=== PATIENT | male | born 1965 | race Caucasian/White ===

== ENCOUNTER 2018-07-17 07:48 | Observation (INO) | payer BC ==
[2018-07-17 08:11] VITALS: BMI 30.2
--- NOTE | 2018-07-17 08:49 | PDOC ---
History of Present Illness <JordanScott - Last Filed: 07/17/18 09:30> - History of Present Illness Initial Comments: 07/17/18 09:17 The patient is a 52 year old with a past medical history of asthma here today for evaluation of chest pain. The patient reports that his chest pain began 5 days ago and describes the pain as sharp, intermittent, and localized to the substernal area. He reports waking up at 2 am last night with chest and neck pain worse than he felt before. He notes the chest pain lasted only for a short time but the neck pain lasted for 30 minutes. The patient reports going to work today and when climbing a flight of stairs he felt lightheaded, dizzy, dry mouth , and his heart racing with chest pressure. He notes his symptoms improved after he was given 4 aspirin and 1 nitroglycerin by EMS. Currently pain is 3/ 10. Pt smoked socially as a teen, no recent smoking. No drug use. No family hx cardiac disease. Pt was diagnosed with lyme disease 4 months ago after peripheral numbness, all symptoms improved after 1 month of antibiotics. Patient denies headache. Denies fever, chills. Denies shortness of breath. Denies nausea, vomiting, diarrhea, abdominal pain. Denies lower extremity edema. Allergies: NKA Social history: Patient reports drinking alcohol socially PCP: none <Julio Cunha - Last Filed: 07/17/18 10:54> - General Chief Complaint: Chest Pain Stated Complaint: Chest Pain Time Seen by Provider: 07/17/18 08:24 Past History <JordanScott - Last Filed: 07/17/18 09:30> - Past Medical History Asthma: Yes (excercise induced, seasonal) COPD: No - Immunization History Immunization Up to Date: Yes - Suicide/Smoking/Psychosocial Hx Smoking History: Never smoked Have you smoked in the past 12 months: No Hx Alcohol Use: No Drug/Substance Use Hx: No <Julio Cunha - Last Filed: 07/17/18 10:54> - Past Medical History Allergies/Adverse Reactions: Allergies Allergy/AdvReac Type Severity Reaction Status Date / Time No Known Allergies Allergy Verified 07/17/18 08:28 Review of Systems - Review of Systems Comments:: 07/17/18 09:19 GENERAL/CONSTITUTIONAL: +lightheadedness. +dizziness. No fever or chills. No weakness. HEAD, EYES, EARS, NOSE AND THROAT: No change in vision. No ear pain or discharge. No sore throat. GASTROINTESTINAL: No nausea, vomiting, diarrhea or constipation. GENITOURINARY: No dysuria, frequency, or change in urination. CARDIOVASCULAR: +chest pain. +heart racing. No shortness of breath. RESPIRATORY: No cough, wheezing, or hemoptysis. MUSCULOSKELETAL: +neck pain. No joint or muscle swelling or pain. No back pain. SKIN: No rash NEUROLOGIC: No headache, vertigo, loss of consciousness, or change in strength/ sensation. ENDOCRINE: No increased thirst. No abnormal weight change. HEMATOLOGIC/LYMPHATIC: No anemia, easy bleeding, or history of blood clots. ALLERGIC/IMMUNOLOGIC: No hives or skin allergy. <Julio Cunha - Last Filed: 07/17/18 10:54> *Physical Exam - Vital Signs Last Vital Signs Temp Pulse Resp BP Pulse Ox 99.1 F 88 16 125/82 99 07/17/18 07:57 07/17/18 07:57 07/17/18 07:57 07/17/18 07:57 07/17/18 08:46 <Scott Ortega - Last Filed: 07/17/18 09:30> - Vital Signs Last Vital Signs Temp Pulse Resp BP Pulse Ox 99.1 F 88 16 125/82 99 07/17/18 07:57 07/17/18 07:57 07/17/18 07:57 07/17/18 07:57 07/17/18 07:57 - Physical Exam Comments: 07/17/18 09:19 GENERAL: Awake, alert, and fully oriented, in no acute distress HEAD: No signs of trauma EYES: PERRLA, EOMI, sclera anicteric, conjunctiva clear ENT: Auricles normal inspection, hearing grossly normal, nares patent, oropharynx clear without exudates. Moist mucosa NECK: Normal ROM, supple, no lymphadenopathy, JVD, or masses LUNGS: Breath sounds equal, clear to auscultation bilaterally. No wheezes, and no crackles HEART: Regular rate and rhythm, normal S1 and S2, no murmurs, rubs or gallops ABDOMEN: Soft, nontender, normoactive bowel sounds. No guarding, no rebound. No masses EXTREMITIES: Normal range of motion, no edema. No clubbing or cyanosis. No cords, erythema, or tenderness NEUROLOGICAL: Normal speech, cranial nerves intact, negative pronator drift, 5/ 5 strength in all 4 extremities, normal sensation to light touch in all 4 extremities, normal cerebellar exam, normal gait, normal reflexes and tone SKIN: Warm, Dry, normal turgor, no rashes or lesions noted. <Julio Cunha - Last Filed: 07/17/18 10:54> Moderate Sedation - Procedure Monitoring Vital Signs: Procedure Monitoring Vital Signs Temperature 99.1 F 07/17/18 07:57 Pulse Rate 88 07/17/18 07:57 Respiratory Rate 16 07/17/18 07:57 Blood Pressure 125/82 07/17/18 07:57 O2 Sat by Pulse Oximetry (%) 99 07/17/18 08:46 <Scott Ortega - Last Filed: 07/17/18 09:30> - Procedure Monitoring Vital Signs: Procedure Monitoring Vital Signs Temperature 99.1 F 07/17/18 07:57 Pulse Rate 88 07/17/18 07:57 Respiratory Rate 16 07/17/18 07:57 Blood Pressure 125/82 07/17/18 07:57 O2 Sat by Pulse Oximetry (%) 99 07/17/18 07:57 <Julio Cunha - Last Filed: 07/17/18 10:54> Heart Score/ECG Review - History History: Highly suspicious - Electrocardiogram EKG: Non specific repolarization disturbance - Age Age: 45-65 - Risk Factors Based on the list above the patient has:: No risk factors known - Troponin Troponin: </= normal limit - Score Heart Score - Total: 4 - [place] Comment: 07/17/18 09:34 Twelve-lead EKG was performed and reviewed by me. Normal sinus rhythm, rate 86. Normal axis and intervals. No ST elevations or T-wave inversions. <Julio Cunha - Last Filed: 07/17/18 10:54> ED Treatment Course - LABORATORY CBC & Chemistry Diagram: 07/17/18 08:45 07/17/18 08:45 - ADDITIONAL ORDERS Additional order review: 07/17/18 08:45 RBC 5.18 MCV 89.5 MCHC 33.0 RDW 13.1 MPV 9.7 Neutrophils % 54.0 Lymphocytes % 29.1 Monocytes % 11.3 H Eosinophils % 4.7 H Basophils % 0.9 <Scott Ortega - Last Filed: 07/17/18 09:30> - LABORATORY CBC & Chemistry Diagram: 07/17/18 08:45 07/17/18 08:45 - RADIOLOGY Radiology Studies Ordered: Category Date Time Status CHEST X-RAY PORTABLE* [RAD] Stat Radiology 07/17/18 08:18 Ordered <Julio Cunha - Last Filed: 07/17/18 10:54> Medical Decision Making - Medical Decision Making 07/17/18 09:35 52yo M with no sig PMH presents to the ED with chest pressure at rest and with exertion. Vitals wnl. Exam wnl. EKG non ischemic. DDx includes unstable angina vs NSTEMI vs PNA vs MSK pain vs GERD. Plan -labs -CXR -admit 07/17/18 10:[address] Reed, pt accepted for admission to [facility] under Dr. Valdez Case discussed in detail with admitting physician including history, physical exam and ancillary studies. Admitting physician has assumed care for the patient, will follow all pending diagnostics and will complete the evaluation and treatment. <Julio Cunha - Last Filed: 07/17/18 10:54> *DC/Admit/Observation/Transfer - Attestations Scribe Attestion: 07/17/18 09:30 Documentation prepared by DUSTY Perea, acting as medical logistics specialist for Julio Cunha MD. <Scott Ortega - Last Filed: 07/17/18 09:30> - Discharge Dispostion Decision to Admit order: Yes - Attestations Physician Attestion: 07/17/18 10:54 I, Dr. Julio Cunha MD, attest that this document has been prepared under my direction and personally reviewed by me in its entirety. I further attest, that it accurately reflects all work, treatment, procedures and medical decision -making performed by me. <Julio Cunha - Last Filed: 07/17/18 10:54> Diagnosis at time of Disposition: Chest discomfort, Lightheaded, Chest pain - Discharge Dispostion Condition at time of disposition: Stable
[2018-07-17 09:10] LABS: BASO % 0.9 % (0-2.0); EOS % 4.7 % (0-4.5); HEMATOCRIT 46.4 % (35.4-49); HEMOGLOBIN 15.3 GM/dL (11.7-16.9); LYMPH % 29.1 % (8-40); MCH 29.6 pg (25.7-33.7); MEAN CELL VOLUME 89.5 fl (80-96); MEAN PLT VOLUME 9.7 fl (7.5-11.1); MONO % 11.3 % (3.8-10.2); PLATELET COUNT 207 K/MM3 (134-434); RBC 5.18 M/mm3 (4.00-5.60); RDW 13.1 % (11.9-15.9); WHITE BLOOD COUNT 6.4 K/mm3 (4.0-10.0)
[2018-07-17 09:34] LABS: ALBUMIN 4.6 g/dl (3.4-5.0); ALK PHOS 70 U/L (45-117); ANION GAP 7 MMOL/L (8-16); BILIRUBIN,TOTAL 0.6 mg/dL (0.2-1); BLOOD UREA NITROGEN 16 mg/dL (7-18); CALCIUM 10.1 mg/dL (8.5-10.1); CHLORIDE 105 mmol/L (98-107); CO2 28 mmol/L (21-32); CREATININE 0.9 mg/dL (0.55-1.3); GLUCOSE,RANDOM 105 mg/dL (74-106); POTASSIUM 4.3 mmol/L (3.5-5.1); SGOT/AST 56 U/L (15-37); SGPT/ALT 113 U/L (13-61); SODIUM 140 mmol/L (136-145)
--- NOTE | 2018-07-17 10:38 | HP ---
CHIEF COMPLAINT: Chest pressure and SOB x 1 day PCP: None HISTORY OF PRESENT ILLNESS: Pt is a 52 yo M with PMHx of asthma, and lyme disease (radiculoneuritis) now presenting with recurrent sharp chest pains x 5 days and chest pressure and SOB x 1 day. 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 No radiation, but he felt a pain at the back of his head on the R. No diaphoresis/nausea/vomiting/no syncope but felt like his body was shaking. He immediately sat down and asked for an ambulance. In the ambulance he received 4 baby aspirin and nitroglycerin and started to feel relieved before presenting in the ED. For the past week, Pt has had recurrent sharp 10/10 less than 1 minute chest pain up to twice a day occurring both at rest (while watching TV) and with minimal exertion. This morning, Pt was woken up at about 2 am with the sharp chest pain that he described like electricity, but was still able to go to work, with plans to follow up with a doctor. Pt has not had similar chest pressure in the past. He says the pressure is different from soreness after excercise or to heart burn. He is relatively active, and walked on the treadmill in the past week for an hour and a half. He had cardiology work up about 10 years ago for chest pain and was told he had some mild valve abnormalities. Pt has mild intermittent asthma and uses advair. Last exacerbation was in May. Smoked as a teenager for about a year less than 3cigs/day. Denies any HTN, HLD or DM hx but has family hx of DM. ER course was notable for: (1) EKG- (2)Trops <0.02 x1 (3) Recent Travel: PAST MEDICAL HISTORY: asthma, lyme disease (radiculoneuritis)- tx for a month with antibiotics and had complete resolution of neuropathy PAST SURGICAL HISTORY: Appendectomy 10years ago Social History: Smoking:Smoked as a teenager for about a year less than 3cigs/day Alcohol:Social Drugs: Denies Family History: Father young in an accident- no known medical conditions Mother 74yrs- DM, Rh Arthritis (on Immunotherapy) Brother 50-DM Allergies No Known Allergies Allergy (Verified 07/17/18 08:28) HOME MEDICATIONS: REVIEW OF SYSTEMS CONSTITUTIONAL: Absent: fever, chills, diaphoresis, generalized weakness, malaise, loss of appetite, weight change HEENT: Absent: rhinorrhea, nasal congestion, throat pain, throat swelling, difficulty swallowing, mouth swelling, ear pain, eye pain, visual changes CARDIOVASCULAR: Absent: chest pain, syncope, palpitations, irregular heart rate, lightheadedness , peripheral edema RESPIRATORY: Absent: cough, shortness of breath, dyspnea with exertion, orthopnea, wheezing, stridor, hemoptysis GASTROINTESTINAL: Absent: abdominal pain, abdominal distension, nausea, vomiting, diarrhea, constipation, melena, hematochezia GENITOURINARY: Absent: dysuria, frequency, urgency, hesitancy, hematuria, flank pain, genital pain MUSCULOSKELETAL: Absent: myalgia, arthralgia, joint swelling, back pain, neck pain SKIN: Absent: rash, itching, pallor HEMATOLOGIC/IMMUNOLOGIC: Absent: easy bleeding, easy bruising, lymphadenopathy, frequent infections ENDOCRINE: Absent: unexplained weight gain, unexplained weight loss, heat intolerance, cold intolerance NEUROLOGIC: Absent: headache, focal weakness or paresthesias, dizziness, unsteady gait, seizure, mental status changes, bladder or bowel incontinence PSYCHIATRIC: Absent: anxiety, depression, suicidal or homicidal ideation, hallucinations. PHYSICAL EXAMINATION Vital Signs - 24 hr 07/17/18 07/17/18 07:57 08:46 Temperature 99.1 F Pulse Rate 88 Respiratory 16 Rate Blood Pressure 125/82 O2 Sat by Pulse 99 99 Oximetry (%) GENERAL: Awake, alert, and fully oriented, in no acute respiratory or painful distress. HEAD: Normal with no signs of trauma. EYES: Pupils equal, round and reactive to light, extraocular movements intact EARS, NOSE, THROAT: oropharynx clear without exudates. Moist mucous membranes. NECK: Normal range of motion, supple without lymphadenopathy, no JVD LUNGS: Breath sounds equal, clear to auscultation bilaterally. No wheezes, and no crackles. HEART:Regular rate and rhythm with few irregular beats, S1 and S2 ABDOMEN: Soft, nontender, not distended, normoactive bowel sounds MUSCULOSKELETAL: Normal range of motion at all joints. No bony deformities or tenderness. No CVA tenderness. LOWER EXTREMITIES: 2+ pulses, warm, well-perfused. No calf tenderness. No peripheral edema. NEUROLOGICAL: Cranial nerves II-XII intact. No facial asymmetry, no tongue deviation. Normal muscle strength and tone. Normal speech. Gait not observed CBC, BMP 07/17/18 08:45 07/17/18 08:45 Laboratory Results - last 24 hr 07/17/18 07/17/18 08:45 08:45 WBC 6.4 RBC 5.18 Hgb 15.3 Hct 46.4 MCV 89.5 MCH 29.6 MCHC 33.0 RDW 13.1 Plt Count 207 MPV 9.7 Absolute Neuts (auto) 3.4 Neutrophils % 54.0 Lymphocytes % 29.1 Monocytes % 11.3 H Eosinophils % 4.7 H Basophils % 0.9 Nucleated RBC % 0 Sodium 140 Potassium 4.3 Chloride 105 Carbon Dioxide 28 Anion Gap 7 L BUN 16 Creatinine 0.9 Creat Clearance w eGFR > 60 Random Glucose 105 Calcium 10.1 Total Bilirubin 0.6 AST 56 H ALT 113 H Alkaline Phosphatase 70 Troponin I < 0.02 Total Protein 8.0 Albumin 4.6 EKG- NSR, no MESHA/STD ASSESSMENT/PLAN: Pt is a 52 yo M with PMHx of asthma, and lyme disease (radiculoneuritis) now presenting with recurrent sharp chest pains x 5 days and chest pressure and SOB x 1 day. #Chest Pain History suspicious but heart score 2 Trend trops- <0.02 x1 ECHO Repeat EKG Hgba1c Lipid profile #HTN BP elevated on monitor Not diagnosed in past Lisinopril- 5mg daily #Transaminitis R/O pancreatitis AST/ALT-56/113 Lipase RUQ US #Obesity Encourage lifestyle modifications Lipid profile #FEN No standing fluids Monitor Lytes replete as needed Sodium free diet #PPx Lovenox 40 sq #Tele obs Visit type - Emergency Visit Emergency Visit: Yes ED Registration Date: 07/17/18 Care time: The patient presented to the Emergency Department on the above date and was hospitalized for further evaluation of their emergent condition. - New Patient This patient is new to me today: Yes Date on this admission: 07/17/18 - Critical Care Critical Care patient: No
--- NOTE | 2018-07-17 11:40 | EKG ---
Test Reason : Blood Pressure : / mmHG Vent. Rate : 086 BPM Atrial Rate : 086 BPM P-R Int : 150 ms QRS Dur : 084 ms QT Int : 378 ms P-R-T Axes : 043 028 036 degrees QTc Int : 452 ms POOR DATA QUALITY, INTERPRETATION MAY BE ADVERSELY AFFECTED NORMAL SINUS RHYTHM WITH SINUS ARRHYTHMIA NORMAL ECG NO PREVIOUS ECGS AVAILABLE Confirmed by STONE DAVILA, CORTNEY ([id number]) on 07/17/2018 11:40:32 AM Referred By: Confirmed By:CORTNEY RITTER MD
[2018-07-17] MEDS ORDERED: LISINOPRIL 5 MG TABLET (FP) PO SCH (12:00)
--- NOTE | 2018-07-17 13:07 | PN ---
Teaching Attending Note Name of Resident: Carrie Reed ATTENDING PHYSICIAN STATEMENT I saw and evaluated the patient. I reviewed the resident's note and discussed the case with the resident. I agree with the resident's findings and plan as documented. SUBJECTIVE: This is a 52 yo man with a history of asthma, Lyme disease who comes to the ED complaining of chest pain. He has been having sharp chest pain on and off for the last week. This has been occurring at rest and with exertion. He had an episode that awoke him from sleep at 2 am today. Later, while at work and walking up stairs, he developed mid chest pressure associated with SOB and palpitations. EMS was called and he was given 4 baby aspirin and nitroglycerin. His symptoms improved on the way to the ED. OBJECTIVE: Vital Signs Period Temp Pulse Resp BP Sys/Pacheco Pulse Ox Last 24 Hr 99.1 F 88 16 125/82 99-99 HEART: S1S2, RRR LUNGS: Clear ABDOMEN: Obese, soft, non-tender, non-distended, normal BS EXTREMITIES: No edema Laboratory Tests 07/17/18 07/17/18 08:45 08:45 WBC 6.4 RBC 5.18 Hgb 15.3 Hct 46.4 MCV 89.5 MCH 29.6 MCHC 33.0 RDW 13.1 Plt Count 207 MPV 9.7 Absolute Neuts (auto) 3.4 Neutrophils % 54.0 Lymphocytes % 29.1 Monocytes % 11.3 H Eosinophils % 4.7 H Basophils % 0.9 Nucleated RBC % 0 Sodium 140 Potassium 4.3 Chloride 105 Carbon Dioxide 28 Anion Gap 7 L BUN 16 Creatinine 0.9 Creat Clearance w eGFR > 60 Random Glucose 105 Calcium 10.1 Total Bilirubin 0.6 AST 56 H ALT 113 H Alkaline Phosphatase 70 Troponin I < 0.02 Total Protein 8.0 Albumin 4.6 ASSESSMENT AND PLAN: This is a 52 yo man with a history of asthma, Lyme disease who presented to the ED with of chest pain. 1. Chest pain - Observe on telemetry - Serial troponins - Echocardiogram - Lipid profile - RUQ US - If workup unremarkable, would do outpatient stress test 2. Hepatic transaminitis - Check lipase - Monitor LFTs - RUQ US 3. Lyme disease 4. Asthma - Stable 5. Obesity
--- NOTE | 2018-07-17 13:36 | ECHO ---
Name: WYATT LUTHER Exam:Adult Echocardiogram Study Date: 07/17/2018 12:17 PM Age: 52 yrs Reason For Study: CHEST PRESSURE Height: 61 in Weight: 160 lb BSA: 1.7 m2 MMode/2D Measurements & Calculations IVSd: 1.3 cm Ao root diam: 2.7 cm LVIDd: 3.7 cm LA dimension: 3.4 cm LVIDs: 2.1 cm LVPWd: 0.83 cm EDV(Teich): 56.6 ml LAV (MOD-bp): 24.0 ml ESV(Teich): 14.1 ml Doppler Measurements & Calculations MV E max nba: 75.5 cm/sec MV A max nba: 80.9 cm/sec MV E/A: 0.93 MV dec time: 0.10 sec Left Ventricle Left ventricular systolic function is normal. Ejection Fraction = 55-60%. Right Ventricle The right ventricle is normal in size and function. Atria Normal left and right atrial size and function. Mitral Valve The mitral valve is normal in structure and function. There is no mitral valve stenosis. There is mil d mitral regurgitation. Tricuspid Valve The tricuspid valve is normal in structure and function. There is mild tricuspid regurgitation. Aortic Valve The aortic valve opens well. No hemodynamically significant valvular aortic stenosis. No aortic regur gitation is present. Pulmonic Valve The pulmonic valve is not well seen, but is grossly normal. There is no pulmonic valvular stenosis. T here is no pulmonic valvular regurgitation. Great Vessels The aortic root is normal size. Pericardium/Pleura There is no pericardial effusion. Interpretation Summary Left ventricular systolic function is normal. Ejection Fraction = 55-60%. The right ventricle is normal in size and function. There is mild mitral regurgitation. There is mild tricuspid regurgitation. The aortic valve opens well. There is no pericardial effusion. MD Morales *Maribel 07/17/2018 01:36 PM
[2018-07-17 13:52] LABS: INR 1.03 (0.83-1.09); PROTHROMBIN TIME (PATIENT) 12.1 SEC (9.7-13.0)
[2018-07-17 13:53] LABS: CHOLESTEROL 225 mg/dL (50-200); HDL CHOLESTEROL 41 mg/dL (40-60); LIPASE 127 U/L (73-393); MAGNESIUM 2.1 mg/dL (1.8-2.4); TRIGLYCERIDES 221 mg/dL (0-150)
[2018-07-17] MEDS ORDERED: LISINOPRIL 5 MG TABLET (FP) ONE (14:38)
[2018-07-18 07:51] LABS: BASO % 0.6 % (0-2.0); EOS % 5.5 % (0-4.5); HEMOGLOBIN 15.3 GM/dL (11.7-16.9); LYMPH % 41.2 % (8-40); MCH 29.8 pg (25.7-33.7); MCHC 32.6 g/dl (32.0-35.9); MEAN CELL VOLUME 91.5 fl (80-96); MEAN PLT VOLUME 9.4 fl (7.5-11.1); MONO % 11.9 % (3.8-10.2); NEUT % 40.8 % (42.8-82.8); PLATELET COUNT 215 K/MM3 (134-434); RBC 5.13 M/mm3 (4.00-5.60); WHITE BLOOD COUNT 6.9 K/mm3 (4.0-10.0)
[2018-07-18 08:33] LABS: ALBUMIN 4.2 g/dl (3.4-5.0); ALK PHOS 63 U/L (45-117); ANION GAP 7 MMOL/L (8-16); BILIRUBIN,TOTAL 0.6 mg/dL (0.2-1); BLOOD UREA NITROGEN 18 mg/dL (7-18); CHLORIDE 106 mmol/L (98-107); CO2 27 mmol/L (21-32); GLUCOSE,RANDOM 102 mg/dL (74-106); MAGNESIUM 2.5 mg/dL (1.8-2.4); PHOSPHOROUS 3.5 mg/dL (2.5-4.9); POTASSIUM 4.7 mmol/L (3.5-5.1); SGOT/AST 56 U/L (15-37); SGPT/ALT 117 U/L (13-61); SODIUM 139 mmol/L (136-145); TOT PROT 7.6 g/dl (6.4-8.2)
[2018-07-18] MEDS ORDERED: ENOXAPARIN NA (PORCINE) 40 MG/0.4 ML DISP.SYRIN SQ SCH (10:00)
[2018-07-18 10:32] VITALS: BP 124/74; PULSE 76; TEMP 98
--- NOTE | 2018-07-18 16:05 | PN ---
Progress Note (short form) - Note Progress Note: pt has no chest pain or arrhythmia on tele no distress vs Vital Signs Period Temp Pulse Resp BP Sys/Pacheco Pulse Ox Last 24 Hr 97.6 F-98.3 F 70-80 18-18 104-124/58-79 96-98 Heent nad lungs clear heart normal heart sounds ext no edema abd soft and on tender bs normal Laboratory Results - last 24 hr 07/17/18 07/18/18 07/18/18 16:00 06:30 06:30 WBC 6.9 RBC 5.13 Hgb 15.3 Hct 47.0 MCV 91.5 MCH 29.8 MCHC 32.6 RDW 13.0 Plt Count 215 MPV 9.4 Absolute Neuts (auto) 2.8 Neutrophils % 40.8 L D Lymphocytes % 41.2 H D Monocytes % 11.9 H Eosinophils % 5.5 H Basophils % 0.6 Nucleated RBC % 0 Sodium 139 Potassium 4.7 Chloride 106 Carbon Dioxide 27 Anion Gap 7 L BUN 18 Creatinine 1.0 Creat Clearance w eGFR > 60 Random Glucose 102 Calcium 10.0 Phosphorus 3.5 Magnesium 2.5 H Total Bilirubin 0.6 AST 56 H ALT 117 H Alkaline Phosphatase 63 Troponin I < 0.02 Total Protein 7.6 Albumin 4.2 Triglycerides Cholesterol Total LDL Cholesterol HDL Cholesterol TSH 07/18/18 06:30 WBC RBC Hgb Hct MCV MCH MCHC RDW Plt Count MPV Absolute Neuts (auto) Neutrophils % Lymphocytes % Monocytes % Eosinophils % Basophils % Nucleated RBC % Sodium Potassium Chloride Carbon Dioxide Anion Gap BUN Creatinine Creat Clearance w eGFR Random Glucose Calcium Phosphorus Magnesium Total Bilirubin AST ALT Alkaline Phosphatase Troponin I Total Protein Albumin Triglycerides 177 H Cholesterol 209 H Total LDL Cholesterol 136 H HDL Cholesterol 36 L TSH 1.51 ASSESSMENT AND PLAN: This is a 52 yo man with a history of asthma, Lyme disease who presented to the ED with of chest pain. 1. Chest pain - cardiac enzymes are normal called cardio consult but pt doesnt want to wait for any one advised to take aspirin till he see a cardio 2. Hepatic transaminitis sonogram shows he has fatty liver advised him to see his medical doctor for f/u and have lfts repeated He understood and he left after signing the papers Visit type - Emergency Visit Emergency Visit: Yes ED Registration Date: 07/17/18 Care time: The patient presented to the Emergency Department on the above date and was hospitalized for further evaluation of their emergent condition. - New Patient This patient is new to me today: Yes Date on this admission: 07/18/18 - Critical Care Critical Care patient: No - Discharge Referral Referred to [facility] No
== END 2018-07-18 14:27 | disposition left against medical advice (07) ==
LOC: JER 07:48 → JERBED 10:54 → J4W 20:07
PROVIDERS: ADMIT Internal Medicine; ATTEND Internal Medicine
DX: R07.89 Other chest pain (principal); R42 Dizziness and giddiness; I10 Essential (primary) hypertension; R74.0 Nonspecific elevation of levels of transaminase and lactic acid dehydrogenase [LDH]; E66.9 Obesity, unspecified; Z68.30 Body mass index [BMI] 30.0-30.9, adult; Z86.19 Personal history of other infectious and parasitic diseases; J45.909 Unspecified asthma, uncomplicated
CPT/HCPCS: 36415; 71046-TC-FY; 76705-TC; 80053; 80061; 82550; 83036; 83690; 83721; 83735; 84100; 84443; 84484; 85025; 85610; 93005; 93010; 93306-TC; 99282-25; G0378